=== PATIENT | female | born 1990 | race Hispanic/Latino ===

== ENCOUNTER 2020-07-25 17:22 | Emergency (ER) | payer MEDICAID | END 2020-07-25 18:05 | disposition left against medical advice (07) | LOC: ED 17:22 | DX: R10.9 Unspecified abdominal pain (principal); Z53.21 Procedure and treatment not carried out due to patient leaving prior to being seen by health care provider ==

== ENCOUNTER 2021-01-07 05:40 | Inpatient (IN) | payer MEDICARE ==
[2021-01-10 17:09] VITALS: BP 113/56
== END 2021-01-10 17:57 | disposition home or self-care (01) | DRG 807 ==
LOC: TRG 05:40 → EEVIPCON 05:41 → APU 05:41 → LD 05:42 → APU 05:53 → TRG 10:59 → OB 18:04
PROVIDERS: ADMIT Obstetrics & Gynecology; ATTEND Obstetrics & Gynecology
PROC: 10E0XZZ Delivery of Products of Conception, External Approach (ICD-10-PCS; principal; 2021-01-07)
PROC: 3E0R3BZ Introduction of Anesthetic Agent into Spinal Canal, Percutaneous Approach (ICD-10-PCS; 2021-01-07)
PROC: 00HU33Z Insertion of Infusion Device into Spinal Canal, Percutaneous Approach (ICD-10-PCS; 2021-01-07)
PROC: 10907ZC Drainage of Amniotic Fluid, Therapeutic from Products of Conception, Via Natural or Artificial Opening (ICD-10-PCS; 2021-01-07)
DX: O60.14X0 Preterm labor third trimester with preterm delivery third trimester, not applicable or unspecified (principal); Z37.0 Single live birth; O99.52 Diseases of the respiratory system complicating childbirth; O99.344 Other mental disorders complicating childbirth; Z20.822 Contact with and (suspected) exposure to COVID-19; O99.334 Smoking (tobacco) complicating childbirth; F31.9 Bipolar disorder, unspecified; F17.210 Nicotine dependence, cigarettes, uncomplicated; J45.909 Unspecified asthma, uncomplicated; Z3A.36 36 weeks gestation of pregnancy; Z80.3 Family history of malignant neoplasm of breast
CPT/HCPCS: 36415; 76815; 76819; 80307; 85014; 85018; 85027; 86850; 86900; 86901; 88307; 90471; 90707; G0378; J0290; J0595; J3410; J7120; U0003